=== PATIENT | female | born 1985 ===

== ENCOUNTER 2023-06-09 13:24 | Outpatient (CLI) | payer OTHER | END 2023-06-09 13:28 | disposition home or self-care (01) | LOC: PRENATAL 13:24 | PROVIDERS: ATTEND Obstetrics & Gynecology Maternal & Fetal Medicine | DX: O36.80X0 Pregnancy with inconclusive fetal viability, not applicable or unspecified (principal); Z36.82 Encounter for antenatal screening for nuchal translucency; O09.529 Supervision of elderly multigravida, unspecified trimester; O34.40 Maternal care for other abnormalities of cervix, unspecified trimester; Z3A.13 13 weeks gestation of pregnancy ==

== ENCOUNTER 2023-10-28 09:04 | Outpatient (CLI) | payer OTHER ==
[~2023-10-28 09:04] MED LIST: PRENATAL CAPLE1 EAC1 PO; VITAMIN C500 M6
== END 2023-10-28 09:05 | disposition home or self-care (01) ==
LOC: PRENATAL 09:04
PROVIDERS: ATTEND Obstetrics & Gynecology Maternal & Fetal Medicine
DX: O26.843 Uterine size-date discrepancy, third trimester (principal); O36.8130 Decreased fetal movements, third trimester, not applicable or unspecified; O09.523 Supervision of elderly multigravida, third trimester; O26.873 Cervical shortening, third trimester; Z3A.34 34 weeks gestation of pregnancy

== ENCOUNTER 2023-11-30 14:15 | Inpatient (IN) | payer OTHER ==
[~2023-11-30] VITALS: Ht 157.5 cm; Wt 2.7 kg
[2023-12-08 21:05] VITALS: BP 131/67
[2023-12-08] MEDS ORDERED: RINGERS SOLUTION,LACTATED 1,000 ML IV SCH (22:00)
[2023-12-08] MEDS ORDERED: AMPICILLIN SODIUM 2,000 MG VIAL IV ONE (22:00)
[2023-12-08 23:13] LABS: URINE APPEARANCE Clear; URINE BILIRRUBIN Negative (NEGATIVE); URINE BLOOD Large; URINE COLOR Orange; URINE GLUCOSE Negative (NEGATIVE); URINE KETONE Negative (NEGATIVE); URINE LEUKOCYTE Moderate; URINE NITRATE Negative; URINE PROTEIN 30 (NEGATIVE); URINE UROBILINOGEN 0.2 E.U./dl
[2023-12-08 23:16] LABS: HEMATOCRIT 35.8 % (36.0-45.00); MEAN CELL VOLUME 87.7 fL (80.00-100.00); MEAN CORPUSCULAR HEMOGLOBIN 29.5 pg (27.00-32.0); MEAN CORPUSCULAR HGB CONC 33.7 g/dl (32.0-36.0); PLATELET COUNT 218 K/uL (150-450); RED BLOOD COUNT 4.08 M/uL (4.00-6.00); RED CELL DISTRIBUTION WIDTH 14.3 % (11.5-14.5)
[2023-12-08 23:17] LABS: URINE BACTERIA 118.4 uL (0.0-1933); URINE EPITHELIAL CELLS 8.3 uL (0.0-38.8); URINE RBC 1864.6 uL (0.0-20.8); URINE WBC 145.9 uL (0.0-23.2)
[2023-12-08 23:29] LABS: INR 0.97; PARTIAL THROMBOPLASTIN TIME 34.1 SECONDS (22.0-34.0); PROTHROMBIN TIME 10.6 SECONDS (9.0-11.5)
[2023-12-08 23:34] LABS: ALBUMIN 3.1 gm/dL (3.4-5.0); BILIRUBIN TOTAL 0.58 mg/dL (0.3-1.2); CALCIUM 9.4 mg/dL (8.5-10.1); CREATININE SERUM 0.99 mg/dL (0.55-1.02); GFR 62.77; GLOBULINA 4.3 G/DL (2.4-3.5); POTASSIUM 3.98 mEq/L (3.5-5.1); TOTAL PROTEIN 7.4 gm/dL (6.4-8.2)
[2023-12-08 23:50] VITALS: BP 132/69
[2023-12-09] MEDS ORDERED: PROMETHAZINE HCL 25 MG/ML AMPUL IV ONE (00:15)
[2023-12-09] MEDS ORDERED: MEPERIDINE HCL/PF 25 MG/ML VIAL IV ONE (00:15)
[2023-12-09 00:22] VITALS: BP 132/69
[2023-12-09] MEDS ORDERED: AMPICILLIN SODIUM 1,000 MG VIAL IV SCH (01:00)
[2023-12-09 04:00] VITALS: BP 134/75
[2023-12-09] MEDS ORDERED: ERYTHROMYCIN BASE 1 GM TUBE OP ONE (07:06)
[2023-12-09] MEDS ORDERED: CHLORHEXIDINE GLUCONATE 120 ML BOTTLE TOP ONE (07:07)
[2023-12-09] MEDS ORDERED: OXYTOCIN 10 UNITS/ML VIAL ONE (07:07)
[2023-12-09] MEDS ORDERED: CEFAZOLIN SODIUM 1,000 MG VIAL IV SCH (07:15)
[2023-12-09] MEDS ORDERED: MORPHINE SULFATE 4 MG/ML VIAL IV ONE ×2 (10:15→11:05)
[2023-12-09] MEDS ORDERED: MORPHINE SULFATE 4 MG/ML CARTRIDGE IV PRN (11:15)
[2023-12-09] MEDS ORDERED: ONDANSETRON HCL 2 MG/ML VIAL IV PRN (11:15)
[2023-12-09] MEDS ORDERED: FF) RHO(D) IMMUNE GLOBULIN (POM) IM ONE (11:45)
[2023-12-09] MEDS ORDERED: MEPERIDINE HCL 25 MG/ML AMPUL IV ONE (11:50)
[2023-12-09] MEDS ORDERED: KETOROLAC TROMETHAMINE 30 MG VIAL IV SCH (12:00)
[2023-12-09] MEDS ORDERED: CEFOXITIN SODIUM 2,000 MG VIAL IV ONE (12:08)
[2023-12-09] MEDS ORDERED: CEFOXITIN SODIUM 1,000 MG in 0.9 % SODIUM CHLORIDE 50 ML IV SCH (13:00)
[2023-12-09] MEDS ORDERED: SIMETHICONE 125 MG CAPSULE PO SCH (13:00)
[2023-12-09 14:09] VITALS: BP 135/76
[2023-12-09] MEDS ORDERED: OXYTOCIN 1,000 ML IV SCH (14:15)
[2023-12-09] MEDS ORDERED: METOCLOPRAMIDE HCL 5 MG/ML VIAL IV NR (14:15)
[2023-12-09] MEDS ORDERED: RINGERS SOLUTION,LACTATED 1,000 ML IV SCH (14:15)
[2023-12-09] MEDS ORDERED: OXYTOCIN 10 UNITS/ML VIAL IV ONE (16:00)
[2023-12-09] MEDS ORDERED: ERYTHROMYCIN BASE OPHT 1GM EACH TUBE OP ONE (16:15)
[2023-12-09] MEDS ORDERED: SENNOSIDES 1 TAB TABLET PO SCH (21:00)
[2023-12-09 21:08] VITALS: BP 113/72
[2023-12-10 02:03] VITALS: BP 110/72
[2023-12-10] MEDS ORDERED: ACETAMINOPHEN 500 MG GEL..CAP PO PRN (06:00)
[2023-12-10 07:53] LABS: HEMATOCRIT 31.9 % (36.0-45.00); HEMOGLOBIN 10.8 g/dL (12.0-15.00); MEAN CELL VOLUME 89.2 fL (80.00-100.00); MEAN CORPUSCULAR HEMOGLOBIN 30.2 pg (27.00-32.0); MEAN CORPUSCULAR HGB CONC 33.8 g/dl (32.0-36.0); PLATELET COUNT 199 K/uL (150-450); RED BLOOD COUNT 3.57 M/uL (4.00-6.00); RED CELL DISTRIBUTION WIDTH 14.2 % (11.5-14.5)
[2023-12-10 09:00] VITALS: BP 101/65
[2023-12-10] MEDS ORDERED: IBUprofen 800 MG TABLET PO PRN (09:00)
[2023-12-10 20:00] VITALS: BP 132/76
[2023-12-11 01:40] VITALS: BP 113/66
[2023-12-11 09:56] VITALS: BP 120/76
[2023-12-11] MEDS ORDERED: SIMETHICONE125 M1 PO (12:54)
[2023-12-11] MEDS ORDERED: IBUPROFEN800 MG PO (12:54)
[2023-12-11] MEDS ORDERED: COLACE100 MG PO (12:54)
[2023-12-11] MEDS ORDERED: HIBICLENS118 ML TOP (12:57)
== END 2023-12-11 13:38 | disposition home or self-care (01) | DRG 783 ==
LOC: OB/GYN 12-08 21:25 → LDR 12-08 21:25 → O/R 12-09 09:38 → OB/GYN 12-09 11:00
PROVIDERS: ADMIT Obstetrics & Gynecology; ATTEND Obstetrics & Gynecology
PROC: BY4FZZZ Ultrasonography of Third Trimester, Single Fetus (ICD-10-PCS; 2023-12-08)
PROC: 4A1HXCZ Monitoring of Products of Conception, Cardiac Rate, External Approach (ICD-10-PCS; 2023-12-08)
PROC: 0UB70ZZ Excision of Bilateral Fallopian Tubes, Open Approach (ICD-10-PCS; 2023-12-09)
PROC: 0UB10ZZ Excision of Left Ovary, Open Approach (ICD-10-PCS; 2023-12-09)
PROC: 10D00Z1 Extraction of Products of Conception, Low, Open Approach (ICD-10-PCS; principal; 2023-12-09 08:00)
DX: O45.8X3 Other premature separation of placenta, third trimester (principal); O41.1230 Chorioamnionitis, third trimester, not applicable or unspecified; O34.83 Maternal care for other abnormalities of pelvic organs, third trimester; D27.1 Benign neoplasm of left ovary; O99.892 Other specified diseases and conditions complicating childbirth; N73.6 Female pelvic peritoneal adhesions (postinfective); Z3A.40 40 weeks gestation of pregnancy; Z37.0 Single live birth; Z30.2 Encounter for sterilization